=== PATIENT | female | born 1990 | race Hispanic/Latino ===

== ENCOUNTER 2017-06-14 03:23 | Inpatient (IN) | payer MEDICAID ==
[2017-06-14 03:56] LABS: Basophils # (Auto) 0.1 K/mm3 (0.0-0.1); Basophils % (Auto) 0.6 % (0.0-1.8); Eosinophils # (Auto) 0.2 K/mm3 (0.0-0.4); Eosinophils % (Auto) 1.4 % (0.0-4.3); Hematocrit 36.6 % (30.3-42.9); Hemoglobin 12.6 gm/dl (10.1-14.3); Lymphocytes # (Auto) 3.2 K/mm3 (1.2-5.4); Lymphocytes % (Auto) 22.1 % (13.4-35.0); Mean Corpuscular HGB Conc 34 % (30-34); Mean Corpuscular Hemoglobin 31 pg (28-32); Mean Corpuscular Volume 90 fl (79-97); Monocytes # (Auto) 0.8 K/mm3 (0.0-0.8); Monocytes % (Auto) 5.3 % (0.0-7.3); Platelet Count 380 K/mm3 (140-440); Red Blood Count 4.09 M/mm3 (3.65-5.03); Red Cell Distribution Width 13.6 % (13.2-15.2)
[2017-06-14] MEDS ORDERED: ANCEF/STERILE WATER 2 GM/20 ML 2 GM/20 ML SYRINGE IV NR (04:00)
[2017-06-14] MEDS ORDERED: LACTATED RINGERS 1,000 ML IV SCH (04:00)
[2017-06-14] MEDS ORDERED: PITOCin/NS 20 UNIT/1000ML DRIP 20 UNITS/1,000 ML BAG IV SCH (04:00)
[2017-06-14] MEDS ORDERED: BICITRA PO ONE (04:01)
--- NOTE | 2017-06-14 04:01 | Anesthesia Day of Surgery ---
Anesthesia Day of Surgery - Day of Surgery Patient Examined: Yes Patient H&P Reviewed: Yes Patient is NPO: No (FSP)
--- NOTE | 2017-06-14 04:01 | Anesthesia Consultation ---
Anesthesia Consult and Med Hx Date of service: 06/14/17 - Airway Anesthetic Teeth Evaluation: Good ROM Head & Neck: Adequate Mental/Hyoid Distance: Adequate Mallampati Class: Class II Intubation Access Assessment: Probably Good - Pulmonary Exam CTA: Yes - Cardiac Exam Cardiac Exam: RRR - Pre-Operative Health Status ASA Pre-Surgery Classification: ASA2, Emergency Proposed Anesthetic Plan: Spinal - Pulmonary Hx Smoking: Yes (1/2 ppd) Hx Asthma: No COPD: No Hx Pneumonia: No - Cardiovascular System Hx Hypertension: No - Central Nervous System Hx Seizures: No Hx Psychiatric Problems: No - Endocrine Hx Renal Disease: No Hx End Stage Renal Disease: No Hx Hypothyroidism: No Hx Hyperthyroidism: No - Hematic Hx Anemia: No Hx Sickle Cell Disease: No - Other Systems Hx Alcohol Use: No
[2017-06-14] MEDS ORDERED: REGLAN IV ONE (04:05)
[2017-06-14] MEDS ORDERED: PEPCID IV ONE (04:05)
[2017-06-14] MEDS ORDERED: MORPHINE ONE (04:06)
[2017-06-14 04:08] LABS: Amphetamine Screen,Urine PRESUMPTIVE NEGATIVE; Benzodiazepines Screen,Urine PRESUMPTIVE NEGATIVE; Cocaine Screen,Urine PRESUMPTIVE NEGATIVE; Methadone Screen,Urine PRESUMPTIVE NEGATIVE; Opiate Screen,Urine PRESUMPTIVE NEGATIVE
[2017-06-14] MEDS ORDERED: WATER FOR IRRIG STERILE IR ONE (04:20)
[2017-06-14] MEDS ORDERED: NACL 0.9% IR ONE (04:20)
--- NOTE | 2017-06-14 04:27 | History and Physical Report ---
History of Present Illness Date of examination: 06/14/17 Date of admission: 06/14/17 03:23 Chief complaint: contractions History of present illness: Previous c/s times 2 present in active labor. Pt complicated by UDS being positive times two for meth. Pt denies any drugs use on admission today.UDS is also negative today. EDC Calculations LMP: 04/29/2015 EDC Confirmation: 06/26/2017 Gestational Age: 23 3/7 weeks Past History : 3 Para: 2 Prev : 2 # 2 Delivery date: 04/2015 Weeks Gestation: 39 labor: no Delivery type: Anesthesia type: spinal Delivery location: [facility] Past Medical History: Reviewed history from 09/13/2014 and no changes required: Negative Past Medical History Past Surgical History: Reviewed history from 09/13/2014 and no changes required: (2009) (2014) Past Medical History Surgery (Non-medical office asst): (2009) (2014) Abnormal PAP: negative KRISTINA Exposure: negative Infertility: negative Uterine Anomaly: negative Uterine Surgery (not C/S): negative Other Gynecologic Problems: negative Social Hx: Patient is single [employer] Smokes cig approx 7-10/day denies ETOH/Drugs Children currently live with father Smoking History: Patient currently smokes every day. Patient has been counseled to quit. Infection History HIV Risk Eval: no Genetic History Congenital Heart Defect: Mom: no Dad: no Nadeem Disease: Mom: no Dad: no Thalassemia Mom: no Dad: no Neural Tube Defect Mom: no Dad: no Down's Syndrome Mom: no Dad: no Geoffrey-Sachs Mom: no Dad: no Sickle Cell Disease/Trait Mom: no Dad: no Hemophilia Mom: no Dad: no Muscular Dystrophy Mom: no Dad: no Cystic Fibrosis Mom: no Dad: no Mila Chorea Mom: no Dad: no Mental Retardation Mom: no Dad: no Fragile X Mom: no Dad: no Other Genetic/Chromosomal Disorder Mom: no Dad: no Child w/other defect Mom: no Dad: no Enviromental Exposures Xray Exposure: no Medication, drug, or alcohol use since LMP: no Chemical/Other Exposure: no Exposure to Cat Liter: no Hx of Parvovirus (Fifth Disease): no Occupational Exposure to Children: none Active Medications (reviewed today): ORTHO MICRONOR 0.35 MG ORAL TABS (NORETHINDRONE) one po q day VITAMINS () Current Allergies (reviewed today): Past History Past Medical History: no pertinent history Past Surgical History: section (x2) [employer] History: abnormal PAP smear Family/Genetic History: none Social history: single, other (h/o Marijuana and meth (+) on office uds x 2 episodes this ) - Obstetrical History Expected Date of Delivery: 06/24/17 Actual Gestation: 38 Week(s) 4 Day(s) : 3 Para: 2 Number of Living Children: 2 Medications and Allergies Allergies Allergy/AdvReac Type Severity Reaction Status Date / Time No Known Allergies Allergy Verified 04/21/15 01:34 Home Medications Medication Instructions Recorded Confirmed Last Taken Type Ibuprofen [Motrin 800 MG tab] 800 mg PO Q8HR PRN #30 tablet 04/21/15 Unknown Rx Lidocain2.5%/Prilocai2.5% [Emla] 5 gm TP 1XW PRN #1 tube 04/21/15 Unknown Rx oxyCODONE /ACETAMINOPHEN [Percocet 1 - 2 tab PO Q4HR PRN #30 tab 04/21/15 Unknown Rx 5/325 mg] Active Meds: Active Medications Cefazolin Sodium (Ancef/Sterile Water 2 Gm/20 Ml) 2 gm in 20 mls @ 80 mls/hr IV PREOP NR PRN Reason: Protocol Stop: 06/14/17 23:45 Lactated Ringer's (Lactated Ringers) 1,000 mls @ 2,250 mls/hr IV PREOP REYES Stop: 06/15/17 04:27 Last Admin: 06/14/17 04:01 Dose: 2,250 mls/hr Oxytocin/Sodium Chloride (Pitocin/Ns 20 Unit/1000ml Drip) 20 units in 1,000 mls @ 0 mls/hr IV TITR REYES PRN Reason: As Directed Review of Systems All systems: negative - Vital Signs Vital signs: Vital Signs Temp 98.0 F 06/14/17 04:10 Temp Pulse Resp BP Pulse Ox 98.0 F 06/14/17 04:10 - Physical Exam Abdomen: Positive: normal appearance, soft. Negative: distention, tenderness, guarding Genitourinary (Female): Positive: other (Nurse exam 4/100/-1) Results Result Diagrams: 06/14/17 03:35 Abnormal lab results 06/14/17 Range/Units 03:35 WBC 14.4 H (4.5-11.0) K/mm3 Seg Neutrophils % 70.6 H (40.0-70.0) % Seg Neutrophils # 10.1 H (1.8-7.7) K/mm3 All other labs normal. Assessment and Plan - Patient Problems (1) 38 weeks gestation of Current Visit: Yes Status: Acute (2) Previous delivery affecting Current Visit: No Status: Acute Plan to address problem: -admit -consented for repeat c/s
[2017-06-14] MEDS ORDERED: ANCEF/STERILE WATER 2 GM/20 ML IV ONE (04:30)
[2017-06-14 04:33] LABS: Cannabinoid Screen,Urine PRESUMPTIVE POSITIVE
[2017-06-14] MEDS ORDERED: ZOFRAN ONE (04:43)
[2017-06-14] MEDS ORDERED: TUCKS PAD TP PRN (05:25)
[2017-06-14] MEDS ORDERED: LANSINOH TP PRN (05:25)
[2017-06-14] MEDS ORDERED: NARCAN 0.4 MG/1 ML IV PRN (05:25)
--- NOTE | 2017-06-14 05:34 | Operative Report ---
Operative Report Operative Report: Date of procedure: 06/14/2017 Pre-operative diagnosis: 38 weeks gestation Previous section 2 Active labor Post-operative diagnosis: Same Procedure name(s): Repeat low transverse section via Pfannenstiel skin incision Surgeon: Dr. Watt Records Management Clerk: JO-ANN Anesthesia: Epidural EBL: 500 mL Urine output: 100 mL of clear urine out at the end of the procedure Fluids: 1800 mL Findings: Liveborn female weight 6 lbs. 6 oz. Apgars of 8 and 9 at one and 5 minutes Grossly normal ovaries and fallopian tubes bilaterally, normal uterus Indications: Patient presents to labor and delivery in active labor at 4 cm completely effaced and -1 station. Patient has history of previous section 2. Patient desired to proceed with repeat . All consents were signed and placed on the chart. Procedure: Patient was taking to the operating room. Patient was then prepped and draped in sterile fashion after anesthesia was found to be adequate. A low transverse skin incision was made with the scalpel through previous incisional scar and carried down to the underlying layer of fascia with the Bovie. The fascia was then incised in the midline and this incision was extended bilaterally with the Bovie. The superior aspect of the fascia was grasped with Kwame clamps tented upward and dissected off of the anterior rectus muscles with the scalpel. In similar fashion the inferior aspect of the fascia was grasped with Kwame clamps tented upward and dissected off of the anterior rectus muscles. The rectus muscles were then bluntly divided in the midline. The peritoneum was identified and entered into sharply. The bladder blade was placed. The bladder flap was created using the Metzenbaum scissors. The bladder blade was replaced. A lower transverse uterine incision was made with the scalpel and extended bilaterally with the bandage scissors. Artificial rupture of membranes was performed yielding clear amniotic fluid. The infant's head was then delivered atraumatically. The anterior shoulder and rest of infant delivered without difficulty. The umbilical cord was clamped x2. The cord was cut. The was then placed in sterile bassinet. The cord blood was collected. The placenta was manually extracted in its entirety. The uterus was exteriorized and cleared of all clots and debris. The uterine incision was closed using 0 Vicryl in a running locking fashion. Several figure -of-eight sutures were used along the incision line to secure excellent hemostasis. The posterior cul-de-sac was copiously irrigated. The uterus was returned to the abdomen. The gutters were also irrigated. The anterior rectus muscles were reapproximated using 3-0 Vicryl. The anterior rectus fascia was reapproximated using 0 Vicryl in a running fashion. The subcuticular fat was reapproximated using 2-0 Vicryl in a running fashion. The skin was reapproximated with 4-0 Monocryl in a subcuticular stitch. The patient tolerated the procedure well. Sponge lap and needle counts were all correct x3. Patient was taken to the recovery room awake and in stable condition.
[2017-06-14] MEDS ORDERED: MORPHINE IV PRN (05:41)
[2017-06-14] MEDS ORDERED: ZOFRAN IV PRN (05:41)
--- NOTE | 2017-06-14 05:41 | Post Anesthesia Evaluation ---
- Post Anesthesia Evaluation Patient Participated: Yes Airway Patent: Yes Stable Respiratory Function: Yes Temp > 96.8F: Yes Pain Manageable: Yes Adequeate Hydration: Yes Anesthesia Complications: No
[2017-06-14] MEDS: D5LR 1,000 ML IV SCH ×3 (05:50→16:37)
[2017-06-14] MEDS ORDERED: SODIUM CHLORIDE FLUSH SYRINGE 10 ML IV NR (06:00)
[2017-06-14] MEDS ORDERED: ANCEF/NS 1 GM/50 ML 1 GM/50 ML BAG IV SCH (06:00)
[2017-06-14] MEDS: DILAUDID IV PRN ×2 (10:07→16:37)
[2017-06-14] MEDS: ceFAZolin 1 GM in NACL 0.9% 20 ML IV SCH ×2 (12:28→20:10)
[2017-06-14 21:07] LABS: Hematocrit 35.1 % (30.3-42.9); Hemoglobin 12.1 gm/dl (10.1-14.3)
[2017-06-14] MEDS: NORCO 5/325 PO PRN (22:36)
[2017-06-14] MEDS: MOTRIN PO PRN (22:36)
[2017-06-15] MEDS ORDERED: BOOSTRIX IM ONE (06:00)
[2017-06-15] MEDS: NORCO 5/325 PO PRN ×3 (06:40→18:46)
[2017-06-15] MEDS: MOTRIN PO PRN ×3 (06:40→18:46)
--- NOTE | 2017-06-15 08:29 | Progress Note ---
Assessment and Plan Patient doing well, no complaints. Lochia scant, incision dry and intact, VSSAF , H&H 12.1/35.1. Advance diet and activity as tolerated. Continue postop pathway. - Patient Problems (1) Methamphetamine use Current Visit: Yes Status: Acute Plan to address problem: Case management consult ordered (2) delivery delivered Current Visit: No Status: Acute Subjective - Subjective Date of service: 06/15/17 Principal diagnosis: postop day #1 s/p repeat c/s Patient reports: appetite normal, voiding normally, pain well controlled, ambulating normally, no dizzy ambulation, no nauseated : doing well, bottle feeding Objective - Vital Signs Latest vital signs: Vital Signs Temp Pulse Resp BP BP Pulse Ox 06/14/17 23:43 98.3 F 74 16 102/63 06/14/17 23:19 98.9 F 73 16 101/63 06/14/17 16:45 98.5 F 83 18 112/78 96 06/14/17 16:37 18 06/14/17 12:12 97.9 F 68 20 104/61 97 06/14/17 10:07 18 Intake and Output 06/14/17 06/15/17 06/15/17 23:59 07:59 15:59 Intake Total 1334.583 600 Output Total 1500 800 Balance -165.417 -200 Intake: IV 814.583 D5lr 1,000 ml @ 125 mls/ 814.583 hr IV DIRECT REYES Rx#: [id number] Oral 520 Intake, Free Water 600 Output: Urine 1500 800 Indwelling Catheter 1000 Void 500 800 Other: Total, Intake Amount 520 Total, Output Amount 500 400 - Exam Breasts: Present: normal Cardiovascular: Present: Regular rate Lungs: Present: Clear to auscultation, Normal air movement Abdomen: Present: normal appearance, soft Vulva: both: normal Uterus: Present: normal, firm, fundal height below umbilicus Extremities: Present: normal Deep Tendon Reflex Grade: Normal +2 Incision: Present: normal, dry, intact
--- NOTE | 2017-06-15 12:21 | Progress Note ---
Subjective Date of service: 06/14/17 Principal diagnosis: postop day #1 s/p repeat c/s Interval history: Patient states no residual weakness, ambulating well, minimal pain, voiding, no anesthesia complications. Objective - Constitutional Vitals: Vital Signs - 12hr 06/15/17 08:00 Temperature 98.8 F Pulse Rate 61 Respiratory 18 Rate Blood Pressure 96/51 [Left] - Labs CBC & Chem 7: 06/14/17 20:02
[2017-06-16] MEDS: NORCO 5/325 PO PRN ×2 (01:16→08:59)
[2017-06-16] MEDS: MOTRIN PO PRN (01:17)
--- NOTE | 2017-06-16 09:24 | Discharge Summary ---
Providers - Providers Date of Admission: 06/14/17 03:23 Date of discharge: 06/16/17 Attending physician: MAGALI COMER 06/14/17 08:14 Consult to Case Management [CONS] Routine Services Needed at Discharge: Computer Installer Notified:: cm notified Primary care physician: MAGALI COMER Hospitalization Condition: Stable Procedures: repeat c/s Hospital course: Did well, po Hct not available , pre op 35, O+ Disposition: DC-01 TO HOME OR SELFCARE Core Measure Documentation - Palliative Care Palliative Care/ Comfort Measures: Not Applicable - Core Measures Any of the following diagnoses?: none Exam - Constitutional Vitals: Temp Pulse Resp BP Pulse Ox 98.6 F 66 20 121/76 96 06/16/17 00:00 06/16/17 00:00 06/16/17 08:59 06/16/17 00:00 06/14/17 16:45 General appearance: Present: no acute distress - Respiratory Respiratory effort: normal - Cardiovascular Rhythm: regular - Extremities Extremities: no ischemia, No edema - Abdominal General gastrointestinal: Present: soft, non-tender Female genitourinary: Present: deferred - Musculoskeletal Musculoskeletal: strength equal bilaterally - Psychiatric Psychiatric: appropriate mood/affect - Neurologic Neurologic: CNII-XII intact Plan Activity: advance as tolerated Weight Bearing Status: Full Weight Bearing Diet: regular Wound: open to air Follow up with: MAGALI COMER MD [Primary Care Provider] - 7 Days Prescriptions: Ibuprofen 800 mg PO Q6HR #30 tablet oxyCODONE /ACETAMINOPHEN [Percocet 5/325] 1 tab PO Q4HR #30 tab
[2017-06-16 13:49] VITALS: BP 104/67
== END 2017-06-16 14:45 | disposition home or self-care (01) | DRG 765 ==
LOC: APU 03:23 → OB 09:32
PROVIDERS: ADMIT Obstetrics & Gynecology; ATTEND Obstetrics & Gynecology
PROC: 10D00Z1 Extraction of Products of Conception, Low, Open Approach (ICD-10-PCS; principal; 2017-06-14)
PROC: 3E0234Z Introduction of Serum, Toxoid and Vaccine into Muscle, Percutaneous Approach (ICD-10-PCS; 2017-06-15)
DX: O34.211 Maternal care for low transverse scar from previous cesarean delivery (principal); O99.324 Drug use complicating childbirth; Z37.0 Single live birth; Z3A.38 38 weeks gestation of pregnancy; F15.90 Other stimulant use, unspecified, uncomplicated; Z23 Encounter for immunization; O99.334 Smoking (tobacco) complicating childbirth; F17.210 Nicotine dependence, cigarettes, uncomplicated; F12.90 Cannabis use, unspecified, uncomplicated
CPT/HCPCS: 36415; 80307; 85014; 85018; 85025; 86592; 86850; 86900; 86901; C1765; J0690; J1170; J2270; J2405; J2590; J2765; J7120; J7121